=== PATIENT | female | born 1975 | race Caucasian/White ===

== ENCOUNTER → 2017-03-07 | Outpatient (CLI) | payer BC ==
--- NOTE | 2017-03-11 10:46 | MM ---
Reason for exam: screening (asymptomatic). Last mammogram was performed 2 years and 8 months ago. History: Patient is nulliparous. Benign right mammotome panel of the right breast, October 17, 2009. Physical Findings: A clinical breast exam by your physician is recommended on an annual basis and results should be correlated with mammographic findings. MG Screening Mammo w CAD Bilateral CC and MLO view(s) were taken. Prior study comparison: July 06, 2014, bilateral MG screening mammo w CAD. The breast tissue is heterogeneously dense. This may lower the sensitivity of mammography. Finding: There is a 10 mm microlobulated oval mass located 2 cm from the nipple in the lower inner quadrant, anterior position of the left breast. Previous mammotome biopsy in the right breast x2. Focal asymmetry right MLO view anterior central position. New finding since July 06, 2014. ASSESSMENT: Incomplete: need additional imaging evaluation, BI-RAD 0 RECOMMENDATION: Special view mammogram of the right breast. Ultrasound of the left breast. [facility] will attempt to contact patient to return for supplemental views and ultrasound.
== END | disposition home or self-care (01) ==
LOC: RADMAMWWP 09:17
PROVIDERS: ATTEND Obstetrics & Gynecology
DX: Z12.31 Encounter for screening mammogram for malignant neoplasm of breast (principal)

== ENCOUNTER → 2017-07-10 | Outpatient (CLI) | payer BC ==
--- NOTE | 2017-07-11 11:14 | MM ---
Reason for exam: additional evaluation requested from abnormal screening. Last mammogram was performed 4 months ago. History: Patient had first child at age 37. Benign right mammotome panel of the right breast, October 17, 2009. Physical Findings: Nurse did not find any significant physical abnormalities on exam. MG Work Up Mamm w CAD RT CC and MLO view(s) were taken of the right breast. Prior study comparison: March 07, 2017, bilateral MG screening mammo w CAD. July 06, 2014, bilateral MG screening mammo w CAD. The breast tissue is heterogeneously dense. This may lower the sensitivity of mammography. No suspicious abnormality. the left abnormality was evaluated with ultrasound of the right on additional views a 1.0cm mass persists in the upper outer quadrant for which ultrasound will be performed. These results were verbally communicated with the patient and result sheet given to the patient on 07/10/17. ASSESSMENT: Incomplete: need additional imaging evaluation, BI-RAD 0 RECOMMENDATION: Ultrasound of the right breast. (upper outer quadrant middle depth)
--- NOTE | 2017-07-11 11:17 | USB ---
Reason for exam: additional evaluation requested from abnormal screening. History: Patient had first child at age 37. Benign right mammotome panel of the right breast, October 17, 2009. US Breast Workup Limited BECKY Left breast ultrasound demonstrates 1.2 x 0.7 x 0.6cm lobular, hypoechoic lesion at 8 o'clock, no increase through transmission, suspicious finding. Right breast ultrasound demonstrates a 1.9 x 0.9 x 0.9cm lobular cystic cluster at 9 o'clock. These results were verbally communicated with the patient and result sheet given to the patient on 07/10/17. ASSESSMENT: Suspicious, BI-RAD 4 RECOMMENDATION: Ultrasound core biopsy of the left breast. Called Dr. Hansen with mammographic findings and has scheduled an appointment for the patient for 07/15/17 at 2:[address] Hancock. PRELIMINARY REPORT CALLED AND FAXED TO DR. HANCOCK ON 07/11/17. [facility]
== END | disposition home or self-care (01) ==
LOC: RADMAMWWP 14:59
PROVIDERS: ATTEND Obstetrics & Gynecology
DX: R92.8 Other abnormal and inconclusive findings on diagnostic imaging of breast (principal)
CPT/HCPCS: 77065

== ENCOUNTER → 2017-07-19 | Day surgery (SDC) | payer BC ==
[2017-07-19 09:24] VITALS: RESP 16; TEMP 98.7; BMI 28.3
[2017-07-19 11:20] VITALS: BP 117/79; PULSE 76
--- NOTE | 2017-07-19 12:48 | USB ---
EXAMINATION TYPE: US biopsy breast VAD LT, Postbiopsy MG diagnostic mammo LT wo CAD DATE OF EXAM: 07/19/2017 CLINICAL HISTORY: 41-year-old female R92.8 ABN Mammogram. TECHNIQUE: Ultrasound guided core biopsy of the left breast. COMPARISON: 07/10/2017 FINDINGS: The procedure of ultrasound guided core biopsy was explained to the patient. Benefits, alternatives, and risks were discussed. An informed consent was then obtained. The patient was placed in supine positioning for imaging and for the procedure. The overlying skin was prepped and draped in usual sterile fashion. Lidocaine buffered with bicarbonate was used as anesthetic into the skin followed by lidocaine/epinephrine into the subcutaneous tissue up to area of concern in the 8:00 left breast. Under ultrasound guidance, a 13-gauge vacuum-assisted mammotome Elite biopsy gun device was used to obtain 7 core samples. Following this, a rib ribbon clip was left at the site of multiple biopsies. No significant cystic component remained. The patient tolerated the procedure well without any immediate complication. The patient was kept in the radiology department for short stay after the procedure and then discharged home in stable condition. Postbiopsy mammogram shows ribbon clip in appropriate position anterior left breast at the site of the question mammographic abnormality. The asymmetry appears to have resolved with the multiple samples. IMPRESSION: 1. LEFT: Successful, uncomplicated ultrasound guided core biopsy of cyst cluster versus complex cyst in the 8:00 left breast, full pathology results to follow. 2. RIGHT: BI-RADS 3 - probably benign, a 1.9 cm cyst cluster versus complex cyst in the 9:00 right breast. RECOMMENDATIONS: 1. LEFT: Follow-up pathology. 2. RIGHT: 6 month follow-up targeted ultrasound 9:00. Pathology Results: Benign LEFT BREAST, SITE NOT OTHERWISE SPECIFIED (CORE BIOPSY): NON-PROLIFERATIVE FIBROCYSTIC CHANGES. Recommendation Follow up ultrasound of the right (9:00) and left (8:00) breast in 6 months. NICOLLE
== END ==
LOC: RADUSWWP 09:10
PROVIDERS: ATTEND Student in an Organized Health Care Education/Training Program
DX: N60.32 Fibrosclerosis of left breast (principal); N60.82 Other benign mammary dysplasias of left breast
CPT/HCPCS: 88305; 77065; 19083; A4648; J2001

== ENCOUNTER → 2018-01-22 | Outpatient (CLI) | payer BC ==
--- NOTE | 2018-01-23 08:39 | MM ---
Reason for exam: follow-up at short interval from prior study. Last mammogram was performed 6 months ago. History: Patient had first child at age 36. Benign US biopsy breast VAD LT of the left breast, July 19, 2017. Benign right mammotome panel of the right breast, October 17, 2009. Physical Findings: Nurse did not find any significant physical abnormalities on exam. MG Diagnostic Mammo w CAD BECKY Bilateral CC and MLO view(s) were taken. Prior study comparison: July 19, 2017, left breast MG diagnostic mammo LT wo CAD. July 10, 2017, right breast MG work up mamm w CAD RT. No significant new findings when compared with previous films. These results were verbally communicated with the patient and result sheet given to the patient on 01/22/18. ASSESSMENT: Benign, BI-RAD 2 RECOMMENDATION: Routine screening mammogram of both breasts in 1 year.
--- NOTE | 2018-01-23 08:42 | USB ---
Reason for exam: follow-up at short interval from prior study. History: Patient had first child at age 36. Benign US biopsy breast VAD LT of the left breast, July 19, 2017. Benign right mammotome panel of the right breast, October 17, 2009. US Breast BILAT Right complete breast ultrasound includes all four quadrants, the retroareolar region and axilla. Finding demonstrates a 9 x 3 x 8mm lobular, cystic lesion at 1 o'clock, a 7 x 4 x 11mm mixed, hypoechoic lesion at 6 o'clock, a 6 x 3 x 5mm oval, cystic, taller than wide lesion at 8 o'clock and a 7 x 6 x 6mm oval, cystic lesion at 9 o'clock. Left complete breast ultrasound includes all four quadrants, the retroareolar region and axilla. Finding demonstrates a 4 x 2 x 3mm oval, hypoechoic lesion at 2 o'clock, a 9 x 3 x 9mm oval, hypoechoic lesion at 5 o'clock, a 5 x 2 x 3mm lesion at 10 o'clock and a 9mm node at the axilla tail. These results were verbally communicated with the patient and result sheet given to the patient on 01/22/18. ASSESSMENT: Probably benign, BI-RAD 3 RECOMMENDATION: Ultrasound of both breasts in 3 months. (3-6 months)
== END | disposition home or self-care (01) ==
LOC: RADMAMWWP 14:44
PROVIDERS: ATTEND Student in an Organized Health Care Education/Training Program
DX: R92.8 Other abnormal and inconclusive findings on diagnostic imaging of breast (principal)
CPT/HCPCS: 77066

== ENCOUNTER → 2018-07-01 | Outpatient (CLI) | payer OTHER ==
--- NOTE | 2018-07-01 12:48 | USB ---
Reason for exam: follow-up at short interval from prior study. History: Patient had first child at age 36. Benign US biopsy breast VAD LT of the left breast, July 19, 2017. Benign right mammotome panel of the right breast, October 17, 2009. Physical Findings: Nurse did not find any significant physical abnormalities on exam. US Breast BILAT Right complete breast ultrasound includes all four quadrants, the retroareolar region and axilla. Finding demonstrates a 0.9 x 0.5 x 0.9cm oval, lobular, hypoechoic, stable lesion at 6 o'clock, a 0.6 x 0.5 x 0.4cm oval, irregular, hypoechoic, taller than wide lesion with some shadowing at 8 o'clock though fairly stable, sampling is advised and a 0.5 x 0.5 x 0.6cm round, cystic lesion at 9 o'clock. Left complete breast ultrasound includes all four quadrants, the retroareolar region and axilla. Finding demonstrates no cystic or solid lesion seen. Nodes noted in axilla bilaterally. These results were verbally communicated with the patient and result sheet given to the patient on 07/01/18. ASSESSMENT: Suspicious, BI-RAD 4 RECOMMENDATION: Ultrasound core biopsy of the right breast. (8 o'clock) Patient will call Dr. Doran's office once she is ready to schedule due to losing insurance.
== END ==
LOC: RADUSWWP 08:57
PROVIDERS: ATTEND Student in an Organized Health Care Education/Training Program
DX: R92.8 Other abnormal and inconclusive findings on diagnostic imaging of breast (principal)

== ENCOUNTER → 2018-07-10 | Day surgery (SDC) | payer OTHER ==
[2018-07-10 11:38] VITALS: RESP 12; TEMP 98.1; BMI 26.5
[2018-07-10 12:54] VITALS: BP 139/90; PULSE 79
--- NOTE | 2018-07-10 15:21 | USB ---
EXAMINATION TYPE: US biopsy breast VAD RT DATE OF EXAM: 07/10/2018 CLINICAL HISTORY: R92.8 ABN LAXMI. TECHNIQUE: Ultrasound guided core biopsy of right 8:00 breast. COMPARISON: NONE FINDINGS: The procedure of ultrasound guided core biopsy was explained to the patient. Benefits, alternatives, and risks were discussed. An informed consent was then obtained. The patient was placed in supine positioning for imaging and for the procedure. The overlying skin was prepped and draped in usual sterile fashion. Lidocaine buffered with bicarbonate was used as anesthetic into the skin and subcutaneous tissue up to area of concern in the right 8:00 breast. Under ultrasound guidance, a 12-gauge vacuum assisted biopsy gun device was used to obtain 3 core samples. Lesion was no longer visible. Following this, a biopsy clip was left in lesion. Postprocedural mammogram demonstrates appropriate clip deployment. The patient tolerated the procedure well without any immediate complication. The patient was kept in the radiology department for short stay after the procedure and then discharged home in stable condition. IMPRESSION: Successful, uncomplicated ultrasound guided core biopsy of area of concern in the right 8:00 breast, full pathology results to follow. Pathology Results: Benign RIGHT BREAST, ULTRASOUND GUIDED CORE BIOPSY: Proliferative fibrocystic changes including moderate to florid usual type ductal hyperplasia, columnar cell hyperplasia, fibrosis and adenosis. Recommendation Follow up mammogram of both breasts and ultrasound of the right breast in 6 months. Bilateral diagnostic mammogram in 6 months in time for the patients annual exam. NICOLLE
--- NOTE | 2018-07-11 12:19 | MM ---
Reason for exam: additional evaluation requested from abnormal screening. Last mammogram was performed 6 months ago. History: Patient had first child at age 36. Benign US biopsy breast VAD LT of the left breast, July 19, 2017. Benign right mammotome panel of the right breast, October 17, 2009. MG Diagnostic Mammo RT Wo CAD CC and ML view(s) were taken of the right breast. Prior study comparison: January 22, 2018, bilateral MG diagnostic mammo w CAD BECKY. July 19, 2017, left breast MG diagnostic mammo LT wo CAD. ASSESSMENT: Post procedure mammogram for marker placement RECOMMENDATION: Ultrasound of the right breast in 6 months. PENDING PATHOLOGY RESULTS.
== END | disposition home or self-care (01) ==
LOC: RADUSWWP 11:20
PROVIDERS: ATTEND Student in an Organized Health Care Education/Training Program
DX: N60.11 Diffuse cystic mastopathy of right breast (principal)
CPT/HCPCS: 88305; 77065; 19083; A4648; J2001

== ENCOUNTER 2019-04-02 12:42 | Emergency (ER) | payer OTHER ==
[2019-04-02] MEDS ORDERED: KETOROLAC 60 MG/2 ML VIAL IM STA (13:11)
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
[2019-04-02 13:37] VITALS: PULSE 89; TEMP 98.1
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
[2019-04-02 15:20] VITALS: BP 119/91; RESP 18
== END 2019-04-02 15:20 | disposition home or self-care (01) ==
LOC: EC 12:42
DX: S16.1XXA Strain of muscle, fascia and tendon at neck level, initial encounter (principal); S09.90XA Unspecified injury of head, initial encounter; S80.10XA Contusion of unspecified lower leg, initial encounter; Z98.890 Other specified postprocedural states; V29.9XXA Motorcycle rider (driver) (passenger) injured in unspecified traffic accident, initial encounter; Y92.410 Unspecified street and highway as the place of occurrence of the external cause; Y93.89 Activity, other specified
CPT/HCPCS: 72125; 70450; 96372; 99284; J1885

== ENCOUNTER → 2020-05-18 | Outpatient (CLI) | payer OTHER ==
--- NOTE | 2020-05-18 14:49 | MM ---
Reason for exam: additional evaluation requested from prior study. Last mammogram was performed 1 year and 10 months ago. History: Patient had first child at age 36. Benign US biopsy breast VAD RT of the right breast, July 10, 2018. Benign US biopsy breast VAD LT of the left breast, July 19, 2017. Benign right mammotome panel of the right breast, October 17, 2009. Physical Findings: Nurse did not find any significant physical abnormalities on exam. MG 3D Diag Mammo W/Cad BECKY Bilateral CC and MLO view(s) were taken. Prior study comparison: July 10, 2018, right breast MG diagnostic mammo RT wo CAD. January 22, 2018, bilateral MG diagnostic mammo w CAD BECKY. The breast tissue is heterogeneously dense. This may lower the sensitivity of mammography. Previous mammotome biopsy in the right breast. There is chronic nodularity bilaterally. There is no dominant lesion. No significant new findings when compared with previous films. These results were verbally communicated with the patient and result sheet given to the patient on 05/18/20. ASSESSMENT: Benign, BI-RAD 2 RECOMMENDATION: Routine screening mammogram of the left breast in 1 year.
== END | disposition home or self-care (01) ==
LOC: RADMAMWWP 14:06
PROVIDERS: ATTEND Family Medicine
DX: R92.8 Other abnormal and inconclusive findings on diagnostic imaging of breast (principal)
CPT/HCPCS: 77066; G0279; 77062

== ENCOUNTER → 2022-06-07 | Outpatient (CLI) | payer OTHER ==
--- NOTE | 2022-06-08 09:28 | MM ---
Reason for Exam: Screening (asymptomatic). Last screening mammogram was performed 12 month(s) ago. Patient History: Menarche at age 10. First Full-Term at age 36. Late child-bearing (after 30). 07/10/2018, Benign Core Biopsy on the right side. 07/19/2017, Benign Core Biopsy on the left side. 10/17/2009, Benign Core Biopsy on the right side. Last menstrual period: 05/28/2022 Risk Values: Domonique 5 year model risk: 2.4%. NCI Lifetime model risk: 18.6%. Prior Study Comparison: 07/10/2018 Right Diagnostic Mammogram, [facility]. 05/18/2020 Bilateral Diagnostic Mammogram, [facility]. 06/06/2021 Bilateral Screening Mammogram, [facility]. Tissue Density: The breast tissue is heterogeneously dense. This may lower the sensitivity of mammography. Findings: Analyzed By CAD. There is no suspicious group of microcalcifications or new suspicious mass in either breast. Previous mammotome biopsy in the right breast. Chronic nodularity bilaterally. No significant change from prior exam. Overall Assessment: Benign, BI-RAD 2 Management: Screening Mammogram of both breasts in 1 year. A clinical breast exam by your physician is recommended on an annual basis and results should be correlated with mammographic findings. Electronically signed and approved by: Jarad Cline D.O.
== END | disposition home or self-care (01) ==
LOC: RADMAMWWP 09:00
PROVIDERS: ATTEND Family Medicine
DX: Z12.31 Encounter for screening mammogram for malignant neoplasm of breast (principal); Z98.890 Other specified postprocedural states
CPT/HCPCS: 77063; 77067

== ENCOUNTER → 2023-06-25 | Outpatient (CLI) | payer OTHER ==
--- NOTE | 2023-06-26 10:11 | MM ---
Reason for Exam: Screening (asymptomatic). Last screening mammogram was performed 12 month(s) ago. Patient History: Menarche at age 10. First Full-Term at age 36. Late child-bearing (after 30). 07/10/2018, Benign Core Biopsy on the right side. 07/19/2017, Benign Core Biopsy on the left side. 10/17/2009, Benign Core Biopsy on the right side. Last menstrual period: 05/15/2023 Risk Values: Domonique 5 year model risk: 2.2%. NCI Lifetime model risk: 18.1%. Prior Study Comparison: 07/19/2017 Left Diagnostic Mammogram, [facility]. 01/22/2018 Bilateral Diagnostic Mammogram, [facility]. 07/10/2018 Right Diagnostic Mammogram, [facility]. 05/18/2020 Bilateral Diagnostic Mammogram, [facility]. 06/06/2021 Bilateral Screening Mammogram, [facility]. 06/07/2022 Bilateral MG 3D screening mammo w/cad, [facility]. Tissue Density: The breast tissue is heterogeneously dense. This may lower the sensitivity of mammography. Findings: Analyzed By CAD. Bilateral breast biopsy clips. There is no suspicious group of microcalcifications or new suspicious mass. Overall Assessment: Benign, BI-RAD 2 Management: Screening Mammogram of both breasts in [address] [facility] will attempt to contact patient to return for supplemental views and ultrasound if indicated. Patient should continue monthly self-breast exams. A clinical breast exam by your physician is recommended on an annual basis. This exam should not preclude additional follow-up of suspicious palpable abnormalities. Note on Domonique scores and lifetime risk: 1. A Domonique score greater than 3% is considered moderate risk. If this is the case, consider specialist referral to assess eligibility for a risk reducing agent. 2. If overall lifetime risk for the development of breast cancer is 20% or higher, the patient may qualify for future screening with alternating mammogram and breast MRI. Electronically signed and approved by: Cody Desai DO
== END | disposition home or self-care (01) ==
LOC: RADMAMWWP 07:56
PROVIDERS: ATTEND Family Medicine
DX: Z12.31 Encounter for screening mammogram for malignant neoplasm of breast (principal)
CPT/HCPCS: 77063; 77067

== ENCOUNTER → 2024-06-26 | Outpatient (CLI) | payer OTHER ==
--- NOTE | 2024-06-26 07:56 | MM ---
Reason for Exam: Screening (asymptomatic). Last screening mammogram was performed 12 month(s) ago. Patient History: Menarche at age 10. First Full-Term at age 36. Late child-bearing (after 30). Premenopausal. 07/10/2018, Benign Core Biopsy on the right side. 07/19/2017, Benign Core Biopsy on the left side. 10/17/2009, Benign Core Biopsy on the right side. Last menstrual period: 06/21/2024 Risk Values: Domonique 5 year model risk: 2.0%. NCI Lifetime model risk: 17.7%. Prior Study Comparison: 06/06/2021 Bilateral Screening Mammogram, [facility]. 06/07/2022 Bilateral MG 3D screening mammo w/cad, [facility]. 06/25/2023 Bilateral MG 3D screening mammo w/cad, [facility]. Tissue Density: The breasts are heterogeneously dense, which may obscure small masses. Findings: Analyzed By CAD. Unchanged bilateral areas of asymmetric density. Chronic nodularity on the right. 3 microclips right breast and one microclip left breast from prior biopsies. There is no suspicious group of microcalcifications or new suspicious mass in either breast. Overall Assessment: Benign, BI-RAD 2 Management: Screening Mammogram of both breasts in 1 year. Patient should continue monthly self-breast exams. A clinical breast exam by your physician is recommended on an annual basis. This exam should not preclude additional follow-up of suspicious palpable abnormalities. Note on Domonique scores and lifetime risk: 1. A Domonique score greater than 3% is considered moderate risk. If this is the case, consider specialist referral to assess eligibility for a risk reducing agent. 2. If overall lifetime risk for the development of breast cancer is 20% or higher, the patient may qualify for future screening with alternating mammogram and breast MRI. [facility], , 06/26/2024 7:52 AM. Electronically signed and approved by: Heaven Chris M.D. Radiologist
== END | disposition home or self-care (01) ==
LOC: RADMAMWWP 07:08
PROVIDERS: ATTEND Family Medicine
DX: Z12.31 Encounter for screening mammogram for malignant neoplasm of breast (principal); R92.333 Mammographic heterogeneous density, bilateral breasts
CPT/HCPCS: 77063; 77067